=== PATIENT | female | born 1965 | race Two or more races ===

== ENCOUNTER 2024-05-08 10:58 | Emergency (ER) | payer OTHER ==
[~2024-05-08] VITALS: Ht 152.4 cm; Wt 48.1 kg
[2024-05-08] MEDS ORDERED: TAPAZOLE5 MG (11:04)
[2024-05-08 13:19] LABS: HEMATOCRIT 37.8 % (36.0-45.00); HEMOGLOBIN 12.9 g/dL (12.0-15.00); MEAN CELL VOLUME 87.6 fL (80.00-100.00); MEAN CORPUSCULAR HGB CONC 34.2 g/dl (32.0-36.0); PLATELET COUNT 297 K/uL (150-450); RED BLOOD COUNT 4.31 M/uL (4.00-6.00); RED CELL DISTRIBUTION WIDTH 13.2 % (11.5-14.5)
[2024-05-08 13:34] LABS: URINE APPEARANCE Turbid; URINE BACTERIA 147.4 uL (0.0-1933); URINE BILIRRUBIN Small (NEGATIVE); URINE BLOOD Large; URINE COLOR Red; URINE EPITHELIAL CELLS 2.3 uL (0.0-38.8); URINE GLUCOSE Negative (NEGATIVE); URINE LEUKOCYTE Small; URINE NITRATE Negative; URINE UROBILINOGEN 0.2 E.U./dl
[2024-05-08 13:39] LABS: URINE PROTEIN 100 (NEGATIVE); URINE RBC > 10558.9 uL (0.0-20.8)
[2024-05-08 13:42] LABS: CALCIUM 9.6 mg/dL (8.5-10.1); CREATININE SERUM 0.66 mg/dL (0.55-1.02); GFR 92.31; POTASSIUM 3.68 mEq/L (3.5-5.1)
== END 2024-05-08 16:30 ==
LOC: ER 10:59
PROVIDERS: General Practice
DX: R31.9 Hematuria, unspecified (principal); N20.0 Calculus of kidney; N39.0 Urinary tract infection, site not specified; E03.9 Hypothyroidism, unspecified; Z88.0 Allergy status to penicillin; Z88.2 Allergy status to sulfonamides